=== PATIENT | female | born 1940 | race Caucasian/White ===

== ENCOUNTER 2019-09-25 09:00 | Day surgery (SDC) | payer MEDICARE, BC ==
[2019-09-24 10:11] VITALS: BMI 24.3
[2019-09-25] MEDS ORDERED: AFRIN NASAL MIST 15 ML BOT ONE ×2 (09:35→09:59)
[2019-09-25] MEDS ORDERED: EPINEPHrine 1 MG/ML AMP ONE ×2 (09:59)
[2019-09-25] MEDS ORDERED: Lidocaine 1% w/Epinephrine 1:100K 20 ML VIAL ONE (09:59)
[2019-09-25] MEDS ORDERED: Bacitracin Zinc Ointment 30 gm TUBE ONE (09:59)
[2019-09-25] MEDS ORDERED: Fentanyl 100 MCG/2 ML VIAL ONE ×3 (10:02→12:25)
[2019-09-25 10:12] LABS: #Basophils 0.2 thou/uL (0.0-0.2); #Eosinphils 0.9 thou/uL (0.0-0.7); #Lymphocytes 1.9 thou/uL (1.20-3.40); #Monocytes 0.8 thou/uL (0.11-0.59); #Neutrophils 7.5 thou/uL (1.40-6.50); %Basophils 1.4 % (0.0-1.0); %Eosinophils 7.7 % (0.0-10.0); %Lymphocytes 16.7 % (21.0-51.0); %Monocytes 6.8 % (0.0-10.0); %Neutrophils 67.5 % (42.0-75.0); Mean Corpuscular HGB CONC 32.2 g/dL (32.0-36.0); Mean Corpuscular Hemoglobin 28.6 pg (27.0-31.0); Mean Corpuscular Volume 88.9 fL (78.0-98.0); Mean Platelet Volume 6.6 fL (7.4-10.4); Platelet Count 339 thou/uL (130-400); RBC Distribution Width 12.7 % (11.5-14.5); Red Blood Cell (RBC) Count 4.53 mill/uL (4.20-5.40); White Blood Cell (WBC) Count 11.1 thou/uL (4.8-10.8)
[2019-09-25 10:24] LABS: Anion Gap 12 mmol/L (10-20); BUN (Urea Nitrogen) 21 mg/dL (9.8-20.1); Calc. Creatinine Clearance 45 mL/min (70-130); Calcium 9.4 mg/dL (7.8-10.44); Carbon Dioxide 29 mmol/L (23-31); Chloride 99 mmol/L (98-107); Estimated GFR-MDRD 52; Glucose 96 mg/dL (83-110); Potassium 3.6 mmol/L (3.5-5.1); Sodium 136 mmol/L (136-145)
[2019-09-25] MEDS ORDERED: Sodium Chloride For Inhalation 0.9% 3 ML NEB ONE (11:21)
[2019-09-25] MEDS ORDERED: Albuterol Sulfate 1.25 MG/3 ML NEB ONE (11:21)
[2019-09-25] MEDS ORDERED: Ondansetron PF 4 MG/2 ML Vial ONE (11:30)
[2019-09-25] MEDS ORDERED: Succinylcholine Chloride 20 MG/ML 10 ml SYRINGE FS ONE (11:30)
[2019-09-25] MEDS ORDERED: PROPOFOL 200 MG/20 ML VIAL ONE (11:30)
[2019-09-25] MEDS ORDERED: Dexamethasone 20 MG/5 ML VIAL ONE (11:30)
[2019-09-25] MEDS ORDERED: Lidocaine 1% PF 5 ML VIAL ONE (11:30)
--- NOTE | 2019-09-25 11:53 | OP ---
DATE OF PROCEDURE: 09/25/2019 PREOPERATIVE DIAGNOSES: 1. Profound anterior septal deformity. 2. Hypertrophic inferior turbinates. 3. Lateral nasal valve collapse. POSTOPERATIVE DIAGNOSES: 1. Profound anterior septal deformity. 2. Hypertrophic inferior turbinates. 3. Lateral nasal valve collapse. PROCEDURES PERFORMED: 1. Septoplasty. 2. Bilateral nasal endoscopy with submucosal resection of inferior turbinates. 3. Lateral valve repair using LATERA implant. DESCRIPTION OF PROCEDURE: SEPTOPLASTY: After local anesthesia was infiltrated into the submucoperichondrial plane, a standard Weingarten incision was made with a #15 blade down to the level of the septal cartilage. The caudal elevator was used to elevate the mucoperichondrium from the underlying cartilage. We then proceeded beyond the bony cartilaginous junction and elevated the bony periosteum as well. Great attention was paid to the spur to prevent rent formation in the septal flap. A transcartilaginous incision was then made, while preserving an adequate dorsal and caudal cartilaginous strut for tip support. The deformed cartilage was removed and disarticulated from the bony cartilaginous junction and maxillary crest. This was placed in saline and would later be crushed and returned to the mucoperichondrial envelope. We then elevated the contralateral periosteum from the bony cartilaginous region and removed the deformed portions of the bone and bony spurs. The cartilage was then crushed and placed back into the mucoperichondrial envelope and the mucosa was re-approximated with a quilting stitch composed of rapidly absorbent gut suture. The Ameya incision was also closed with interrupted gut suture. At the completion of the case, Gomez splints were placed and suture secured to the caudal septum. BILATERAL NASAL ENDOSCOPY WITH SUBMUCOSAL RESECTION OF INFERIOR TURBINATES: After consent was obtained, the patient was identified, brought to the operating room, and placed on the operating room table in the supine position. Consent was obtained, notifying the patient of the possibility of additional infections, bleeding, brain injury, and eye/orbital injury. The patient was placed on the operating room table, and general endotracheal anesthesia and intravenous access was obtained. The patient was then positioned, prepped and draped for endoscopic sinus surgery. Nasal preparation included trimming nasal vestibular hairs and spraying in topical Afrin. We then placed Afrin topical solution on nasal pledgets and strategically located them intranasally. The perinasal mucosa was injected with 1% lidocaine with 1:100,000 epinephrine in the submucoperichondrial plane of the septum, lateral nasal wall, and anterior to the uncinate. The patient was then prepped and draped in a sterile fashion and positioned for endoscopic sinus surgery. With the 0-degree endoscope, the patient underwent systematic nasal endoscopy. There were no suspicious internasal masses or lesions identified. We then focused our attention to the osteomeatal complex region under the middle turbinate. The inferior turbinates were visualized with a 0 degree endoscope and outfractured with a Marquand elevator. The inferior medial aspect was cauterized with the electrocautery. Hemostasis was obtained . After adequate airway was established, we turned our attention to the contralateral side and used a similar procedure. Again, a Marquand elevator was used to outfracture inferior turbinates under endoscopic visualization. With a suction cautery, the free inferior medial aspect was cauterized under direct visualization along the length of the inferior turbinate. At this point, we then turned our attention to the contralateral side and proceeded with endoscopic sinus surgery. At the completion of the case, Rice keel splints were placed in the ethmoid cavities after the ethmoidectomy. There were no complications. The patient tolerated the procedure well and was discharged to the recovery room in stable condition prior to return to the preoperative day stay with ultimate discharge home. Prescriptions for pain medication and antibiotics were provided. The patient received intramuscular Depo-Medrol during the case. LATERAL VALVE REPAIR USING LATERA IMPLANT: Following the anterior septoplasty with a poor anterior tip support, there was still with significant lateral valve compromise and collapse, we decided to proceed with LATERA. The area was infiltrated with 1% lidocaine along the nasal dorsum. We then delineated the topical anatomy and inserted the insertion needle into the vestibular skin down to the nasal bone and skate along the nasal bone until the insertion point. The implant was then deployed as pressure was held on the implant and the device was withdrawn. We then did identical technique on the contralateral side. There were no complications. The patient tolerated the procedure well, was awakened, taken to recovery room in stable condition prior to discharge home. Job ID: [id number]
[2019-09-25] MEDS ORDERED: HYDROcodone/Acetaminophen 5/325 mg Tablet ONE (13:53)
== END 2019-09-25 14:30 | disposition home or self-care (01) ==
LOC: SDC 09:00
PROVIDERS: ATTEND Specialist
PROC: 09RM0KZ Replacement of Nasal Septum with Nonautologous Tissue Substitute, Open Approach (ICD-10-PCS; principal; 2019-09-25)
PROC: 09BL8ZZ Excision of Nasal Turbinate, Via Natural or Artificial Opening Endoscopic (ICD-10-PCS; 2019-09-25)
PROC: 09UK0JZ Supplement Nasal Mucosa and Soft Tissue with Synthetic Substitute, Open Approach (ICD-10-PCS; 2019-09-25)
DX: J34.89 Other specified disorders of nose and nasal sinuses (principal); J34.2 Deviated nasal septum; J34.3 Hypertrophy of nasal turbinates; G47.33 Obstructive sleep apnea (adult) (pediatric); G47.19 Other hypersomnia; Z79.899 Other long term (current) drug therapy
CPT/HCPCS: 80048; 85025; 93005; 93010; J0171; J1100; J2001; J2405; J2704; J3010

== ENCOUNTER 2024-03-14 15:58 | Inpatient (IN) | payer MEDICARE ==
[2024-03-14] MEDS ORDERED: Ondansetron PF 4 MG/2 ML Vial IVP PRN (19:22)
[2024-03-14] MEDS ORDERED: Ondansetron ODT 4 MG TAB PO PRN (19:22)
[2024-03-14] MEDS ORDERED: Acetaminophen 325 MG TAB PO PRN (19:22)
[2024-03-14 20:24] LABS: Hematocrit 30.3 % (36.0-47.0)
[2024-03-14] MEDS: GoLYTELY 4,000 ml Bottle PO SCH (22:30)
[2024-03-14] MEDS: Dextrose 5 %-0.45 % NaCl 1,000 ML IV SCH (23:38)
[2024-03-14] MEDS: Pantoprazole 40 MG VIAL IVP SCH (23:41)
[2024-03-15 03:01] VITALS: BMI 19.3
[2024-03-15 04:23] LABS: #Basophils Less than 0.03 10x3/uL (0.0-0.2); #Eosinphils Less than 0.03 10x3/uL (0.0-0.7); %Basophils 0.2 % (0.0-1.0); %Eosinophils 0.2 % (0.0-10.0); %Lymphocytes 19.2 % (21.0-51.0); %Monocytes 12.8 % (0.0-10.0); %Neutrophils 66.3 % (42.0-75.0); Hematocrit 23.2 % (36.0-47.0); Hemoglobin 7.8 g/dL (12.0-16.0); Mean Corpuscular HGB CONC 33.6 g/dL (32.0-36.0); Mean Corpuscular Hemoglobin 30.4 pg (27.0-31.0); Mean Corpuscular Volume 90.3 fL (78.0-98.0); Mean Platelet Volume 9.3 fL (7.4-10.4); Platelet Count 225 10x3/uL (130-400); RBC Distribution Width 17.8 % (11.5-14.5); Red Blood Cell (RBC) Count 2.57 mill/uL (4.20-5.40)
[2024-03-15 04:52] LABS: Anion Gap 14 mmol/L (10-20); BUN (Urea Nitrogen) 31 mg/dL (9.8-20.1); Calc. Creatinine Clearance 26 mL/min (70-130); Calcium 7.5 mg/dL (7.8-10.44); Carbon Dioxide 20 mmol/L (23-31); Chloride 106 mmol/L (98-107); Estimated GFR 46; Glucose 90 mg/dL (83-110); Potassium 3.7 mmol/L (3.5-5.1); Sodium 136 mmol/L (136-145)
[2024-03-15] MEDS ORDERED: Ketamine In 0.9 % NaCl 50 MG/5 ML SYRINGE ONE (08:27)
[2024-03-15] MEDS ORDERED: PROPOFOL 40 ML ONE (08:28)
[2024-03-15] MEDS ORDERED: Promethazine HCl 25 MG/ML VIAL IM PRN (10:06)
[2024-03-15] MEDS ORDERED: Ondansetron HCl/PF 4 MG/2 ML Vial IVP PRN (10:06)
[2024-03-15 11:45] VITALS: BMI 19.3
[2024-03-15 11:48] LABS: Hemoglobin 11.6 g/dL (12.0-16.0); Platelet Count 199 10x3/uL (130-400)
[2024-03-15 21:58] LABS: Magnesium 1.6 mg/dL (1.6-2.6); Potassium 2.9 mmol/L (3.5-5.1)
[2024-03-15] MEDS ORDERED: Electrolyte Replacement Protocol 1 EACH FS PRN (22:15)
[2024-03-15] MEDS: Magnesium 2 GM/50 ML(in water) 2 GM in Premix 1 BAG IVPB SCH (22:34)
[2024-03-15] MEDS: Potassium Phosphate 30 MMOL in Sodium Chloride 0.9% 500 ML IVPB SCH (22:34)
[2024-03-16] MEDS: hydrALAZINE 20 MG/ML VIAL SLOW IVP SCH (04:25)
[2024-03-16 04:45] LABS: #Basophils 0.03 10x3/uL (0.0-0.2); %Basophils 0.3 % (0.0-1.0); %Eosinophils 1.3 % (0.0-10.0); %Lymphocytes 17.4 % (21.0-51.0); %Monocytes 13.2 % (0.0-10.0); %Neutrophils 66.8 % (42.0-75.0); Hematocrit 33.4 % (36.0-47.0); Hemoglobin 11.5 g/dL (12.0-16.0); Mean Corpuscular HGB CONC 34.4 g/dL (32.0-36.0); Mean Corpuscular Hemoglobin 30.5 pg (27.0-31.0); Mean Corpuscular Volume 88.6 fL (78.0-98.0); Platelet Count 212 10x3/uL (130-400); RBC Distribution Width 17.2 % (11.5-14.5); Red Blood Cell (RBC) Count 3.77 mill/uL (4.20-5.40)
[2024-03-16 05:04] LABS: Anion Gap 18 mmol/L (10-20); BUN (Urea Nitrogen) 15 mg/dL (9.8-20.1); Calc. Creatinine Clearance 40 mL/min (70-130); Calcium 7.5 mg/dL (7.8-10.44); Carbon Dioxide 18 mmol/L (23-31); Chloride 106 mmol/L (98-107); Estimated GFR 80; Glucose 103 mg/dL (83-110); Magnesium 2.4 mg/dL (1.6-2.6); Potassium 3.6 mmol/L (3.5-5.1); Sodium 138 mmol/L (136-145)
[2024-03-16] MEDS: Polyethylene Glycol 3350 17 GM Packet PO SCH (08:24)
[2024-03-16] MEDS ORDERED: Albuterol 1.25 MG (3 mL) NEB NEB PRN (13:30)
[2024-03-16] MEDS: Simvastatin 5 MG TAB PO SCH (21:11)
[2024-03-16] MEDS: Memantine 10 MG TAB PO SCH (21:12)
[2024-03-17 09:12] LABS: #Basophils Less than 0.03 10x3/uL (0.0-0.2); %Basophils 0.2 % (0.0-1.0); %Eosinophils 0.4 % (0.0-10.0); %Lymphocytes 12.3 % (21.0-51.0); %Monocytes 15.8 % (0.0-10.0); %Neutrophils 70.4 % (42.0-75.0); Hematocrit 31.9 % (36.0-47.0); Hemoglobin 11.2 g/dL (12.0-16.0); Mean Corpuscular HGB CONC 35.1 g/dL (32.0-36.0); Mean Corpuscular Hemoglobin 30.6 pg (27.0-31.0); Mean Corpuscular Volume 87.2 fL (78.0-98.0); Mean Platelet Volume 8.6 fL (7.4-10.4); Platelet Count 216 10x3/uL (130-400); RBC Distribution Width 16.6 % (11.5-14.5); Red Blood Cell (RBC) Count 3.66 mill/uL (4.20-5.40)
[2024-03-17] MEDS: Zinc Sulfate 220 MG CAP PO SCH (09:30)
[2024-03-17] MEDS: Venlafaxine HCl XR 75 MG CAP PO SCH (09:30)
[2024-03-17] MEDS: Potassium Chloride 20 MEQ TAB PO SCH ×2 (09:30→10:39)
[2024-03-17] MEDS: Donepezil HCl 5 MG TAB PO SCH (09:30)
[2024-03-17] MEDS: Pantoprazole DR 40 MG TAB PO SCH (09:31)
[2024-03-17 09:57] LABS: Anion Gap 10 mmol/L (10-20); BUN (Urea Nitrogen) 7 mg/dL (9.8-20.1); Calc. Creatinine Clearance 49 mL/min (70-130); Calcium 7.3 mg/dL (7.8-10.44); Carbon Dioxide 25 mmol/L (23-31); Chloride 102 mmol/L (98-107); Estimated GFR 88; Glucose 114 mg/dL (83-110); Magnesium 1.6 mg/dL (1.6-2.6); Potassium 2.4 mmol/L (3.5-5.1); Sodium 135 mmol/L (136-145)
[2024-03-17] MEDS: Magnesium 2 GM/50 ML(in water) 2 GM in Premix 1 BAG IVPB SCH (10:41)
[2024-03-18 04:23] VITALS: TEMP 97.7
[2024-03-18 04:46] LABS: Anion Gap 10 mmol/L (10-20); BUN (Urea Nitrogen) 9 mg/dL (9.8-20.1); Calc. Creatinine Clearance 42 mL/min (70-130); Calcium 7.3 mg/dL (7.8-10.44); Carbon Dioxide 22 mmol/L (23-31); Chloride 103 mmol/L (98-107); Estimated GFR 85; Glucose 90 mg/dL (83-110); Magnesium 2.1 mg/dL (1.6-2.6); Potassium 3.5 mmol/L (3.5-5.1); Sodium 131 mmol/L (136-145)
[2024-03-18 09:00] VITALS: BP 133/67
[2024-03-18] MEDS ORDERED: Potassium Chloride 20 MEQ TAB PO SCH (10:00)
== END 2024-03-18 11:58 | DRG 392 ==
LOC: 2NO 17:25 → OBSVTOIN 03-16 09:33
PROVIDERS: ADMIT Internal Medicine; ATTEND Internal Medicine
PROC: 0DJ08ZZ Inspection of Upper Intestinal Tract, Via Natural or Artificial Opening Endoscopic (ICD-10-PCS; principal; 2024-03-15)
PROC: 0DBN8ZX Excision of Sigmoid Colon, Via Natural or Artificial Opening Endoscopic, Diagnostic (ICD-10-PCS; 2024-03-15)
PROC: 0W3P8ZZ Control Bleeding in Gastrointestinal Tract, Via Natural or Artificial Opening Endoscopic (ICD-10-PCS; 2024-03-15)
PROC: 30233N1 Transfusion of Nonautologous Red Blood Cells into Peripheral Vein, Percutaneous Approach (ICD-10-PCS; 2024-03-16)
DX: K52.89 Other specified noninfective gastroenteritis and colitis (principal); K62.6 Ulcer of anus and rectum; D62 Acute posthemorrhagic anemia; N17.9 Acute kidney failure, unspecified; F03.90 Unspecified dementia, unspecified severity, without behavioral disturbance, psychotic disturbance, mood disturbance, and anxiety; D72.829 Elevated white blood cell count, unspecified; I10 Essential (primary) hypertension; I48.0 Paroxysmal atrial fibrillation; Z96.653 Presence of artificial knee joint, bilateral; E78.5 Hyperlipidemia, unspecified; M81.0 Age-related osteoporosis without current pathological fracture; G47.33 Obstructive sleep apnea (adult) (pediatric); K59.00 Constipation, unspecified; Z79.899 Other long term (current) drug therapy; Z79.82 Long term (current) use of aspirin; Z79.52 Long term (current) use of systemic steroids; Z90.710 Acquired absence of both cervix and uterus
CPT/HCPCS: 36415; 36430; 51701; 71045; 74018; 80048; 80053; 81001; 82728; 83540; 83550; 83605; 83735; 83880; 84484; 85025; 85610; 85730; 86850; 86900; 86901; 87040; 88305; 93005; 94760; 96361; 96365; 96374; 96375; 96376; C1889; G0378; J0360; J0696; J2470; J2704; J3475; J3490; J7030; J7042; P9016; P9040